=== PATIENT | female | born 1980 | race Caucasian/White ===

== ENCOUNTER 2017-01-19 04:35 | Inpatient (IN) | payer MEDICAID ==
[~2017-01-19] VITALS: Ht 160 cm; Wt 80.7 kg
[2017-01-19] MEDS ORDERED: OXYTOCIN 10 UNITS/ML VIAL ONE ×2 (05:19→05:36)
[2017-01-19] MEDS ORDERED: LACTATED RINGERS 1,000 ML IV SCH (05:24)
[2017-01-19] MEDS ORDERED: OXYTOCIN 10 UNITS/ML VIAL IM SCH (05:25)
[2017-01-19] MEDS ORDERED: LIDOCAINE 1% 50 ML ONE (05:49)
[2017-01-19] MEDS ORDERED: LIDOCAINE 1% 500 MG/50 ML VIAL INJ SCH (05:50)
[2017-01-19] MEDS ORDERED: PHYTONADIONE 1 MG/0.5 ML SYR ONE (06:24)
[2017-01-19] MEDS ORDERED: WITCH HAZEL 40 PAD PACKAGE TP PRN (06:25)
[2017-01-19] MEDS ORDERED: HEPATITIS B VACCINE PEDIATRIC 10 MCG/0.5 ML VIAL IMVAC ONE (06:25)
[2017-01-19] MEDS ORDERED: BENZOCAINE/MENTHOL 20%-0.5% 60 GM CAN TP PRN (06:25)
[2017-01-19] MEDS ORDERED: IBUPROFEN 600 MG TAB PO PRN (06:25)
[2017-01-19] MEDS ORDERED: MEASLES, MUMPS, AND RUBELLA 1 VIAL SQVAC PRN (06:25)
[2017-01-19] MEDS ORDERED: OXYTOCIN 20 UNITS/LR PREMIX 1,000 ML IV SCH (06:25)
[2017-01-19] MEDS ORDERED: oxyCODONE/APAP 5/325 MG 1 TAB TAB PO PRN (06:25)
[2017-01-19 08:00] VITALS: BP 124/58
[2017-01-19] MEDS ORDERED: OXYTOCIN 20 UNITS/LR PREMIX 1,000 ML IV ONE (10:53)
--- NOTE | 2017-01-19 12:29 | NUR ---
PATIENT HAS BEEN SCREENED AND CATEGORIZED LOW NUTRITION RISK. PATIENT WILL BE SEEN WITHIN 7 DAYS OF ADMISSION. 01/26/17 MANDO KRAUSE; HANNAH, RD
[2017-01-21] MEDS ORDERED: FERROUS SULFAT325 MG PO (15:06)
[2017-01-21] MEDS ORDERED: TYLENOL325 M2 PO (15:08)
== END 2017-01-21 15:30 | disposition home or self-care (01) | DRG 560 ==
LOC: MLD 04:35 → MFCC 09:15
PROVIDERS: ADMIT Obstetrics & Gynecology; ATTEND Obstetrics & Gynecology
PROC: 10E0XZZ Delivery of Products of Conception, External Approach (ICD-10-PCS; principal; 2017-01-19)
PROC: 3E0234Z Introduction of Serum, Toxoid and Vaccine into Muscle, Percutaneous Approach (ICD-10-PCS; 2017-01-19)
DX: O62.3 Precipitate labor (principal); O09.523 Supervision of elderly multigravida, third trimester; Z23 Encounter for immunization; Z37.0 Single live birth; Z3A.39 39 weeks gestation of pregnancy